=== PATIENT | male | born 1940 | race Caucasian/White ===

== ENCOUNTER 2016-11-19 14:34 | Emergency (ER) | payer MEDICARE ==
[~2016-11-19] VITALS: Ht 177.8 cm; Wt 76.5 kg
[2016-11-19 14:39] VITALS: BP 147/74; PULSE 83; RESP 16; TEMP 102.1; O2SAT 97
--- NOTE | 2016-11-19 14:59 | PD ---
HPI Chief Complaint: Fever Time Seen by Provider: 14:55 Travel History International Travel<30 days: Yes Contact w/Intl Traveler<30days: [place] Country Traveled to: [place] Traveled to known affect area: No History of Present Illness HPI 76-year-old male presents to the ER today for several days history of cough, cold symptoms, sore throat, nausea, fevers of 102 and 103, and burning on urination. He denies shortness of breath, chest pains, or any other symptoms. His has had similar symptoms as well in the last few days but is not as bad as him. He had been visiting a friend in the hospital who had a strep infection. Modifying Factors: None Associated Signs & Symptoms: Cough, sore throat, nausea, fevers Risk Factors: Sick contacts PFSH Past Medical History Diminished Hearing: No Social History Alcohol Use: Yes ("SOMETIMES") Tobacco Use: No Substance Use: No Allergies-Medications (Allergen,Severity, Reaction): Coded Allergies: No Known Allergies (Verified , 11/19/16) Reported Meds & Prescriptions Reported Meds & Active Scripts Active Motrin Ib (Ibuprofen) 200 Mg Tablet 600 Mg PO Q6HR PRN Tamiflu (Oseltamivir Phosphate) 75 Mg Cap 75 Mg PO BID 5 Days Review of Systems Except as stated in HPI: all other systems reviewed are Neg Physical Exam Narrative GENERAL: Well-developed elderly white male patient currently in moderate distress. Awake and oriented 3. SKIN: Focused skin assessment warm/dry. HEAD: Atraumatic. Normocephalic. EYES: Pupils equal and round. No scleral icterus. Mild bilateral conjunctival injection and tearing without significant drainage. ENT: No nasal bleeding or discharge. Mucous membranes pink and moist. Mild pharyngeal erythema without significant exudates. NECK: Trachea midline. No JVD. Supple. CARDIOVASCULAR: Regular rate and rhythm. No murmur appreciated. RESPIRATORY: No accessory muscle use. Clear to auscultation. Breath sounds equal bilaterally. GASTROINTESTINAL: Abdomen soft, non-tender, nondistended. Hepatic and splenic margins not palpable. MUSCULOSKELETAL: No obvious deformities. No clubbing. No cyanosis. No edema. NEUROLOGICAL: Awake and alert. No obvious cranial nerve deficits. Motor grossly within normal limits. Normal speech. PSYCHIATRIC: Appropriate mood and affect; insight and judgment normal. Data Data Last Documented VS Vital Signs Date Time Temp Pulse Resp B/P Pulse Ox O2 Delivery O2 Flow Rate FiO2 11/19/16 16:20 102.0 11/19/16 16:00 89 16 124/74 94 Room Air Orders Complete Blood Count With Diff (11/19/16 14:51) Comprehensive Metabolic Panel (11/19/16 14:51) Lactic Acid Sepsis Protocol (11/19/16 14:51) Urinalysis - C+S If Indicated (11/19/16 14:51) Blood Culture (11/19/16 14:51) Chest, Single Ap (11/19/16 14:51) Blood Glucose (11/19/16 14:51) Ecg Monitoring (11/19/16 14:51) Iv Access Insert/Monitor (11/19/16 14:51) Oximetry (11/19/16 14:51) Oxygen Administration (11/19/16 14:51) Acetaminophen (Tylenol) (11/19/16 15:00) Group A Rapid Strep Screen (11/19/16 14:55) Influenzae A/B Antigen (11/19/16 14:55) Strep Culture (Group A) (11/19/16 15:20) Labs Laboratory Tests Test 11/19/16 11/19/16 11/19/16 15:15 15:25 15:30 Urine Collection Type CLEAN CATCH Urine Color YELLOW Urine Turbidity CLEAR Urine pH 6.0 Urine Specific [place] 1.008 Urine Protein TRACE mg/dL Urine Glucose (UA) NEG mg/dL Urine Ketones NEG mg/dL Urine Occult Blood NEG Urine Nitrite NEG Urine Bilirubin NEG Urine Leukocyte Esterase NEG Urine Squamous Epithelial 0-5 /hpf Cells Urine Amorphous Sediment FEW Microscopic Urinalysis Comment CULT NOT INDICATED Urine Collection Time 1515 White Blood Count 7.1 TH/MM3 Red Blood Count 5.63 MIL/MM3 Hemoglobin 16.8 GM/DL Hematocrit 48.5 % Mean Corpuscular Volume 86.3 FL Mean Corpuscular Hemoglobin 29.9 PG Mean Corpuscular Hemoglobin 34.7 % Concent Red Cell Distribution Width 12.5 % Platelet Count 161 TH/MM3 Mean Platelet Volume 9.7 FL Neutrophils (%) (Auto) 76.5 % Lymphocytes (%) (Auto) 10.6 % Monocytes (%) (Auto) 11.9 % Eosinophils (%) (Auto) 0.5 % Basophils (%) (Auto) 0.5 % Neutrophils # (Auto) 5.6 TH/MM3 Lymphocytes # (Auto) 0.7 TH/MM3 Monocytes # (Auto) 0.8 TH/MM3 Eosinophils # (Auto) 0.0 TH/MM3 Basophils # (Auto) 0.0 TH/MM3 CBC Comment DIFF FINAL Differential Comment Sodium Level 132 MEQ/L Potassium Level 5.1 MEQ/L Chloride Level 100 MEQ/L Carbon Dioxide Level 22.2 MEQ/L Anion Gap 10 MEQ/L Blood Urea Nitrogen 21 MG/DL Creatinine 1.80 MG/DL Estimat Glomerular Filtration 37 ML/MIN Rate Random Glucose 89 MG/DL Calcium Level 8.8 MG/DL Total Bilirubin 0.9 MG/DL Aspartate Amino Transf 51 U/L (AST/SGOT) Alanine Aminotransferase 27 U/L (ALT/SGPT) Alkaline Phosphatase 64 U/L Total Protein 7.6 GM/DL Albumin 3.6 GM/DL Lactic Acid Level 1.4 mmol/L MDM Medical Decision Making Medical Screen Exam Complete: Yes Emergency Medical Condition: Yes Medical Record Reviewed: Yes Interpretation(s) Laboratory Tests Test 11/19/16 15:25 Neutrophils (%) (Auto) 76.5 % (16.0-70.0) Monocytes (%) (Auto) 11.9 % (0.0-8.0) Lymphocytes # (Auto) 0.7 TH/MM3 (1.0-4.8) Sodium Level 132 MEQ/L (136-145) Blood Urea Nitrogen 21 MG/DL (7-18) Creatinine 1.80 MG/DL (0.60-1.30) Estimat Glomerular Filtration 37 ML/MIN (>89) Rate Aspartate Amino Transf 51 U/L (15-37) (AST/SGOT) Last 24 hours Impressions Chest X-Ray 11/19/16 1451 Signed Impressions: Service Date/Time: Saturday, November 19, 2016 15:06 - CONCLUSION: No acute disease. Mario Silva MD FACR Differential Diagnosis Cough, sore throat, fevers, urinary symptomsviral syndrome versus UTI versus pneumonia versus bronchitis versus influenza Narrative Course Lab work did not show significant dehydration, or UTI. Chest x-ray did not show pneumonia. She is positive for influenza which is suspect is the cause of his current symptoms. My plan would be to release him with follow-up to primary care physician as needed. We will give him symptomatically for pain with ibuprofen and given Tamiflu. The plan has discussed with him and and they state understanding. Diagnosis Primary Impression: Influenza Med/Other Pt SpecificInfo: Prescription(s) given Scripts Ibuprofen (Motrin Ib)200 Mg [id number] Mg PO Q6HR PRN (PAIN SCALE 1 TO 10) #20 Prov:Cinthya Brasher MD 11/19/16 Oseltamivir (Tamiflu)75 Mg Cap75 Mg PO BID 5 Days Ref 0 Prov:Cinthya Brasher MD 11/19/16 Disposition: 01 DISCHARGE HOME Condition: Stable Cinthya Brasher MD Nov 19, 2016 14:59
[2016-11-19] MEDS ORDERED: ACETAMINOPHEN 325 MG TAB PO ONE (15:00)
--- NOTE | 2016-11-19 15:15 | RADHPO ---
EXAM DATE/TIME: 11/19/2016 15:06 [facility] COMPARISON: No previous studies available for comparison. INDICATIONS : Fever, cough. MEDICAL HISTORY : None. SURGICAL HISTORY : None. ENCOUNTER: Initial ACUITY: 3 days PAIN SCORE: 0/10 LOCATION: Bilateral chest FINDINGS: A single view of the chest demonstrates the lungs to be symmetrically aerated without evidence of mas s, infiltrate or effusion. The cardiomediastinal contours are unremarkable. Osseous structures are intact. CONCLUSION: No acute disease. Mario Silva MD FACR on November 19, 2016 at 15:12 Board Certified Radiologist. This report was verified electronically.
[2016-11-19 15:35] VITALS: O2SAT 96
[2016-11-19 15:42] LABS: AUTOMATED NEUTROPHIL # 5.6 TH/MM3 (1.8-7.7); BASOPHIL % 0.5 % (0.0-2.0); EOSINOPHIL % 0.5 % (0.0-4.0); HEMATOCRIT 48.5 % (39.0-51.0); LYMPH % 10.6 % (9.0-44.0); LYMPHOCYTE # 0.7 TH/MM3 (1.0-4.8); MEAN CELL VOLUME 86.3 FL (80.0-100.0); MEAN CORPUSCULAR HEMOGLOBIN 29.9 PG (27.0-34.0); MEAN CORPUSCULAR HGB CONC 34.7 % (32.0-36.0); MONO % 11.9 % (0.0-8.0); NEUT % 76.5 % (16.0-70.0); PLATELET COUNT 161 TH/MM3 (150-450); RED BLOOD COUNT 5.63 MIL/MM3 (4.50-5.90); RED CELL DISTRIBUTION WIDTH 12.5 % (11.6-17.2); WHITE BLOOD COUNT 7.1 TH/MM3 (4.0-11.0)
[2016-11-19 15:43] LABS: HEMO FLAGS DIFF FINAL
[2016-11-19 15:58] LABS: CHLORIDE 100 MEQ/L (98-107); SODIUM (NA) 132 MEQ/L (136-145)
[2016-11-19 15:58] LABS: BLOOD, URINE NEG (NEG); GLUCOSE,URINE NEG (NEG); KETONE, URINE NEG (NEG); NITRITE,URINE NEG (NEG)
[2016-11-19 16:00] VITALS: BP 124/74; PULSE 89; RESP 16; O2SAT 94
[2016-11-19 16:02] LABS: POTASSIUM 5.1 MEQ/L (3.5-5.1)
[2016-11-19 16:03] LABS: ANION GAP 10 MEQ/L (5-15); BICARBONATE 22.2 MEQ/L (21.0-32.0); BLOOD UREA NITROGEN 21 MG/DL (7-18)
[2016-11-19 16:06] LABS: ALT (GPT) 27 U/L (12-78); AST (GOT) 51 U/L (15-37); GLOMERULAR FILTRATION RATE 37 ML/MIN (>89)
[2016-11-19 16:08] LABS: TOTAL BILIRUBIN ADULT 0.9 MG/DL (0.2-1.0)
[2016-11-19 16:09] LABS: ALKALINE PHOSPHATASE 64 U/L (45-117)
[2016-11-19 16:13] LABS: METHOD OF COLLECTION CLEAN CATCH; URINE COLOR YELLOW (YELLW/STRAW)
[2016-11-19 16:20] VITALS: TEMP 102
[2016-11-19 16:21] LABS: COMMENT (UR) CULT NOT INDICATED; CULTURE IF INDICATED CULT NOT INDICATED; SQUAMOUS EPITHELIAL CELL URINE 0-5 /hpf (0-5)
[2016-11-19] MEDS ORDERED: OSEL75 PO (16:36)
[2016-11-19] MEDS ORDERED: IBUP-1129 PO (16:36)
== END 2016-11-19 17:07 | disposition home or self-care (01) ==
LOC: PHED 14:34
DX: J11.1 Influenza due to unidentified influenza virus with other respiratory manifestations (principal); R50.9 Fever, unspecified; R30.0 Dysuria
CPT/HCPCS: 71010; 80053; 81001; 83605; 85025; 87040; 87081; 87804; 87880; 99284